=== PATIENT | female | born 1985 | race Caucasian/White ===

== ENCOUNTER 2016-10-21 10:58 | Emergency (ER) | payer OTHER ==
[~2016-10-21] VITALS: Ht 165.1 cm; Wt 80.0 kg
[2016-10-21 11:00] VITALS: PULSE 130
[2016-10-21 11:18] VITALS: BP 127/75; PULSE 114; RESP 18; O2SAT 98
[2016-10-21] MEDS ORDERED: METH10TA PO (11:22)
[2016-10-21] MEDS ORDERED: HYDROmorphone HCL PF 1 MG/ML VIAL IVS ONE (11:30)
[2016-10-21] MEDS ORDERED: SODIUM CHLOR 0.9% 1000 ML INJ 1,000 ML IV ONE (11:30)
[2016-10-21] MEDS ORDERED: ONDANSETRON HCL 4 MG/2 ML VIAL IVP ONE (11:30)
[2016-10-21 11:40] LABS: AUTOMATED NEUTROPHIL # 3.4 TH/MM3 (1.8-7.7); BASOPHIL % 0.4 % (0.0-2.0); EOSINOPHIL # 0.4 TH/MM3 (0-0.4); EOSINOPHIL % 4.9 % (0.0-4.0); HEMATOCRIT 37.1 % (35.0-46.0); HEMO FLAGS DIFF FINAL; LYMPH % 43.3 % (9.0-44.0); LYMPHOCYTE # 3.3 TH/MM3 (1.0-4.8); MEAN CELL VOLUME 89.4 FL (80.0-100.0); MEAN CORPUSCULAR HEMOGLOBIN 30.2 PG (27.0-34.0); MEAN CORPUSCULAR HGB CONC 33.8 % (32.0-36.0); MONO % 6.4 % (0.0-8.0); PLATELET COUNT 214 TH/MM3 (150-450); RED BLOOD COUNT 4.15 MIL/MM3 (4.00-5.30); RED CELL DISTRIBUTION WIDTH 12.3 % (11.6-17.2); WHITE BLOOD COUNT 7.5 TH/MM3 (4.0-11.0)
[2016-10-21] MEDS ORDERED: HYDROmorphone HCL PF 1 MG/ML VIAL IV PUSH ONE (12:30)
[2016-10-21 12:57] LABS: POTASSIUM 3.9 MEQ/L (3.5-5.1)
--- NOTE | 2016-10-21 13:33 | RADRPT ---
EXAM DATE/TIME: 10/21/2016 11:51 [place] COMPARISON: No previous studies available for comparison. INDICATIONS : Pelvic cramping and large clots MEDICAL HISTORY : Active miscarriage. SURGICAL HISTORY : None. ENCOUNTER: Initial ACUITY: 1 week PAIN SCORE: 2/10 LOCATION: Bilateral pelvis MEASUREMENTS: UTERUS: 15.4 x 7.9 x 6.8 cm ENDOMETRIAL STRIPE: 21 mm FINDINGS: There is a cystic area in the anterior endometrium which measures 1 cm. The remainder of the endomet rium is hyperechogenic and measures up to 2 cm in thickness. No increased flow seen in endometrium b y color Doppler. At the level of the cervix, there is a prominent echogenic area which measures 9.3 x 2.4 cm. The echogenicity in the endocervical region has similar echotexture as the thickened endom etrium. During the course of the examination, this echogenic area those from the endocervical region to the vagina. No evidence of free fluid. Neither ovary is identified. Transvaginal scanning was not performed. CONCLUSION: 1. Echogenic material measuring up to 2 cm in thickness and 9 cm in length which moves from the endoc ervical region to the vagina during the examination, suggesting passage of clots. 2. Persistent endometrial thickening up to 2 cm with a focal cystic area anteriorly. 3. Recommend obstetric followup and followup beta hCG. Nic Clemons MD on October 21, 2016 at 13:22 Board Certified Radiologist. This report was verified electronically.
[2016-10-21] MEDS ORDERED: HYDR-3535 PO (13:52)
[2016-10-21] MEDS ORDERED: ZOFR4TAB3 SL (13:52)
--- NOTE | 2016-10-21 13:52 | PD ---
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 Seen by Provider: 11:16 Travel History International Travel<30 days: No Contact w/Intl Traveler<30days: No Traveled to known affect area: No History of Present Illness HPI VAG BLEEDING, STATES SHE HAS BEEN TOLD THAT SHE IS HAVING A MISCARRIAGE BY [facility] Past Medical History Medical History: Denies Significant Hx ?: Social History Alcohol Use: No Tobacco Use: No Substance Use: No Allergies-Medications (Allergen,Severity, Reaction): Coded Allergies: Latex (Verified Allergy, Unknown, 10/21/16) Reported Meds & Prescriptions Reported Meds & Active Scripts Active Reported Methadone (Methadone HCl) 10 Mg Tab 35 Mg PO DAILY Review of Systems Except as stated in HPI: all other systems reviewed are Neg Genitourinary: Positive: Vaginal Bleeding Physical Exam Narrative GENERAL: SKIN: Warm and dry. HEAD: Atraumatic. Normocephalic. EYES: Pupils equal and round. No scleral icterus. No injection or drainage. ENT: No nasal bleeding or discharge. Mucous membranes pink and moist. NECK: Trachea midline. No JVD. CARDIOVASCULAR: Regular rate and rhythm. RESPIRATORY: No accessory muscle use. Clear to auscultation. Breath sounds equal bilaterally. GASTROINTESTINAL: Abdomen soft, non-tender, nondistended. Hepatic and splenic margins not palpable. MUSCULOSKELETAL: Extremities without clubbing, cyanosis, or edema. No obvious deformities. NEUROLOGICAL: Awake and alert. No obvious cranial nerve deficits. Motor grossly within normal limits. Five out of 5 muscle strength in the arms and legs. Normal speech. PSYCHIATRIC: Appropriate mood and affect; insight and judgment normal. 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/Non-Preg (10/21/16 ) Ondansetron Inj (Zofran Inj) (10/21/16 11:30) Hydromorphone Pf Inj (Dilaudid Pf Inj) (10/21/16 11:30) Sodium Chlor 0.9% 1000 Ml Inj (Ns 1000 M (10/21/16 11:30) Hydromorphone Pf Inj (Dilaudid Pf Inj) (10/21/16 12:30) Labs Laboratory Tests Test 10/21/16 11:29 White Blood Count 7.5 TH/MM3 Red Blood Count 4.15 MIL/MM3 Hemoglobin 12.5 GM/DL Hematocrit 37.1 % Mean Corpuscular Volume 89.4 FL Mean Corpuscular Hemoglobin 30.2 PG Mean Corpuscular Hemoglobin 33.8 % Concent Red Cell Distribution Width 12.3 % Platelet Count 214 TH/MM3 Mean Platelet Volume 7.8 FL Neutrophils (%) (Auto) 45.0 % Lymphocytes (%) (Auto) 43.3 % Monocytes (%) (Auto) 6.4 % Eosinophils (%) (Auto) 4.9 % Basophils (%) (Auto) 0.4 % Neutrophils # (Auto) 3.4 TH/MM3 Lymphocytes # (Auto) 3.3 TH/MM3 Monocytes # (Auto) 0.5 TH/MM3 Eosinophils # (Auto) 0.4 TH/MM3 Basophils # (Auto) 0.0 TH/MM3 CBC Comment DIFF FINAL Differential Comment Sodium Level 139 MEQ/L Potassium Level 3.9 MEQ/L Chloride Level 105 MEQ/L Carbon Dioxide Level 24.0 MEQ/L Anion Gap 10 MEQ/L Blood Urea Nitrogen 6 MG/DL Creatinine 0.68 MG/DL Estimat Glomerular Filtration 100 ML/MIN Rate Random Glucose 103 MG/DL Calcium Level 8.4 MG/DL Blood Type O POSITIVE Antibody Screen NEGATIVE Blood Bank Comment [facility] Medical Decision Making Medical Screen Exam Complete: Yes Emergency Medical Condition: Yes Medical Record Reviewed: Yes Differential Diagnosis RPOC VS ONGOING SPONT AB Narrative Course SEE ABOVE Diagnosis Primary Impression: Spontaneous Scripts Ondansetron Odt (Zofran Odt)4 Mg Tab4 Mg SL Q6HR PRN (Nausea/Vomiting) #20 TAB Ref 0 Prov:Checo De Dios MD 10/21/16 Hydrocodone-Acetaminophen (Lortab)10-325 Mg Tab1 Tab PO Q6H PRN (PAIN) #15 TAB Ref 0 Prov:Checo De Dios MD 10/21/16 Disposition: 01 DISCHARGE HOME Condition: Stable Checo De Dios MD Oct 21, 2016 13:52
[2016-10-21 15:27] VITALS: BP 97/54; PULSE 89; RESP 16; O2SAT 100
[2016-10-27] MEDS ORDERED: SPRI28TA PO (15:18)
== END 2016-10-21 16:17 | disposition home or self-care (01) ==
LOC: NEPC 10:58
DX: O03.9 Complete or unspecified spontaneous abortion without complication (principal)
CPT/HCPCS: 76856; 80048; 85025; 86850; 86900; 86901; 96374; 99285; J1170; J7030

== ENCOUNTER 2017-05-30 13:30 | Emergency (ER) | payer OTHER ==
[~2017-05-30] VITALS: Ht 165.1 cm; Wt 72.3 kg
[~2017-05-30 13:30] MED LIST: METH10TA PO; SPRI28TA PO
[2017-05-30 13:31] VITALS: BP 119/69; PULSE 94; RESP 18; TEMP 98.3; O2SAT 99
[2017-05-30] MEDS ORDERED: PROMSYP3 PO (14:13)
[2017-05-30] MEDS ORDERED: ALBUAER3 INH (14:13)
--- NOTE | 2017-05-30 14:14 | PD ---
HPI Chief Complaint: Cold / Flu Symptoms Time Seen by Provider: 14:00 Travel History International Travel<30 days: No Contact w/Intl Traveler<30days: No Traveled to known affect area: No History of Present Illness HPI This is a 31-year-old female here with cough 2 days. He reports that the cough is nonproductive. No fever or chills. No shortness of breath or chest pain. Symptom severity is moderate. No aggravating or alleviating factors. PFSH Past Medical History Medical History: Denies Significant Hx ?: Not LMP: 05/04/2017 Social History Alcohol Use: No Tobacco Use: No Substance Use: No Allergies-Medications (Allergen,Severity, Reaction): Coded Allergies: latex (Unverified Allergy, Unknown, 12/29/16) Reported Meds & Prescriptions Reported Meds & Active Scripts Active Proair Hfa 8.5 GM Inh (Albuterol Sulfate) 90 Mcg/Act Aer 2 Puff INH Q4-6H PRN 108 mcg/actuation Promethazine-Dextromethorphan Liq (Dextromethorphan-Promethazine Liq) 6.25-15 Mg /5 Ml Syrp 5 Ml PO Q6HR PRN Sprintec 28 (Norgestimate-Ethinyl Estradiol) 0.25-35 mg-Mcg Tab 1 Tab PO DAILY Reported Methadone (Methadone HCl) 10 Mg Tab 35 Mg PO DAILY Review of Systems Except as stated in HPI: all other systems reviewed are Neg General / Constitutional: No: Fever Eyes: No: Visual changes HENT: No: Headaches Cardiovascular: No: Chest Pain or Discomfort Respiratory: Positive: Cough, Wheezing Gastrointestinal: No: Abdominal Pain Genitourinary: No: Dysuria Physical Exam Narrative GENERAL: Alert well-appearing female SKIN: Warm and dry. HEAD: Normocephalic. EYES: No injection or drainage. NECK: Supple, trachea midline. CARDIOVASCULAR: Regular rate and rhythm RESPIRATORY: Breath sounds equal bilaterally. No accessory muscle use. Rhonchorous cough present while being examined GASTROINTESTINAL: Abdomen soft, non-tender, nondistended. Data Data Last Documented VS Vital Signs Date Time Temp Pulse Resp B/P (MAP) Pulse Ox O2 Delivery O2 Flow Rate FiO2 05/30/17 14:41 05/30/17 13:31 98.3 94 18 99 MDM Medical Decision Making Medical Screen Exam Complete: Yes Emergency Medical Condition: Yes Differential Diagnosis Bronchitis, influenza, pneumonia Narrative Course This is a 31-year-old female here with viral-like illness 2 days. She is nontoxic appearing. Her vital signs are stable. She has a rhonchorous cough. She will be treated symptomatically for bronchitis Diagnosis Primary Impression: URI (upper respiratory infection) Qualified Codes: J06.9 - Acute upper respiratory infection, unspecified; B97.89 - Other viral agents as the cause of diseases classified elsewhere Referrals: [facility] Departure Forms: Tests/Procedures, Work Release Enter return to work date: Jun 01, 2017 Additional Instructions: Rest and stay well hydrated. Prometh DM as needed for cough. Albuterol inhaler as needed for wheezing. Scripts Albuterol 8.5 GM Inh (Proair Hfa 8.5 GM Inh) 90 Mcg/Act Aer 2 PUFF INH Q4-6H Y for SHORTNESS OF BREATH, #1 INHALER 0 Refills 108 mcg/actuation Prov: Essie Salinas 05/30/17 Dextromethorphan-Promethazine Liq (Promethazine-Dextromethorphan Liq) 6.25-15 Mg /5 Ml Syrp 5 ML PO Q6HR Y for COUGH, #120 ML Prov: Essie Salinas 05/30/17 Disposition: 01 DISCHARGE HOME Condition: Stable Essie Salinas May 30, 2017 14:14
== END 2017-05-30 14:40 | disposition home or self-care (01) ==
LOC: NEPK 13:30
DX: J06.9 Acute upper respiratory infection, unspecified (principal); R06.02 Shortness of breath; Z91.040 Latex allergy status
CPT/HCPCS: 99284